=== PATIENT | female | born 1970 | race African-American/Black ===

== ENCOUNTER 2021-10-05 07:41 | Inpatient (IN) | payer MEDICARE, MEDICAID ==
[~2021-10-05] VITALS: Ht 157.5 cm; Wt 84.1 kg
[~2021-10-05 07:41] MED LIST: ALBU18HF2 IH; AMLO5TAB88 PO; BUME2TAB7 PO; CARV12.545 PO; CHOL-36 PO; CLOP75TA33 PO; FLUT1BLS IH; GLIP5TAB12 PO; HYDR30OI12 TP; ISOS120T9 PO; NEPVIT PO; P20 PO; albuterol
[2021-10-05] MEDS ORDERED: METHYLPREDNISOLONE SOD SUCC 125 MG/2 ML VIAL IV STA (07:52)
[2021-10-05] MEDS ORDERED: ALBUTEROL (0.083%) 2.5MG/3ML NEB HHN STA (07:52)
[2021-10-05] MEDS ORDERED: IPRATROPIUM BROMIDE (0.02%) 0.5MG/2.5ML NEB HHN STA (07:52)
[2021-10-05] MEDS ORDERED: FUROSEMIDE 100MG/10ML VIAL IVP ONE (08:00)
[2021-10-05] MEDS ORDERED: NITROGLYCERIN OINT 1GM/INCH UDPKT TD ONE (08:15)
[2021-10-05] MEDS ORDERED: NITROGLYCERIN 50MG PREMIX 250 ML IV ONE (08:15)
[2021-10-05 08:25] LABS: BG BASE EXCESS -6.5 mmol/L (-2.0-2.0); BG CARBOXYHEMOGLOBIN 0.7 % (0.5-1.5); BG DEOXYHEMOGLOBIN 0.1 % (0.0-5.0); BG FRACTION INSPIRED OXYGEN 100; BG HCO3 ACT 21.9 mmol/L (22.0-26.0); BG METHEMOGLOBIN 0.4 % (0.0-1.5); BG OXYGEN SATURATION 99.9 % (92.0-98.5); BG OXYHEMOGLOBIN 98.8 % (94.0-97.0); BG PH 7.203 (7.350-7.450); BG PO2 311.5 mmHg (75.0-100.0); BG SAMPLE SITE RIGHT RADIAL; BG TOTAL HEMOGLOBIN 12.5 g/dL (12.0-18.0); BG VENT MODE MASK - BIPAP
[2021-10-05] MEDS ORDERED: NITROGLYCERIN 50MG PREMIX 250 ML IV PRN (08:45)
[2021-10-05 08:56] LABS: BASOPHILS % 0.5 % (0.0-2.0); EOSINOPHILS % 3.5 % (0.0-5.0); HEMATOCRIT. 37.7 % (36.0-48.0); MEAN CORPUSCULAR HEMOGLOBIN 25.9 pg (28.0-32.0); MEAN CORPUSCULAR VOLUME 81.5 fL (81.0-99.0); MEAN PLATELET VOLUME 8.4 fl (7.4-10.4); MONOCYTES % 6.3 % (2.0-8.0); NEUTROPHILS % 50.7 % (40.0-76.0); PLATELET 319 x1000/uL (130-400); RED BLOOD CELL COUNT 4.63 mill/uL (4.2-5.4); RED CELL DISTRIBUTION WIDTH 17.9 % (11.6-14.6)
[2021-10-05] MEDS ORDERED: AZITHROMYCIN 500 MG in DEXT 5% WATER 250 ML IV SCH (09:00)
[2021-10-05] MEDS ORDERED: CEFTRIAXONE 1 G PREMIX 50 ML IV NR (09:00)
[2021-10-05 09:05] LABS: CHLORIDE 108 mEq/L (98-107)
[2021-10-05] MEDS ORDERED: ASPIRIN 325MG TABLET PO NR (09:30)
[2021-10-05 13:54] LABS: BG CARBOXYHEMOGLOBIN 0.2 % (0.5-1.5); BG DEOXYHEMOGLOBIN 2.4 % (0.0-5.0); BG FRACTION INSPIRED OXYGEN 40; BG HCO3 ACT 18.8 mmol/L (22.0-26.0); BG METHEMOGLOBIN 0.3 % (0.0-1.5); BG OXYGEN SATURATION 97.6 % (92.0-98.5); BG OXYHEMOGLOBIN 97.1 % (94.0-97.0); BG PCO2 38.8 mmHg (35.0-45.0); BG PH 7.303 (7.350-7.450); BG PO2 99.7 mmHg (75.0-100.0); BG SAMPLE SITE RIGHT RADIAL; BG TOTAL HEMOGLOBIN 12.4 g/dL (12.0-18.0); BG VENT MODE MASK - BIPAP
[2021-10-05] MEDS ORDERED: CLONIDINE 0.1MG TABLET PO PRN (14:15)
[2021-10-05] MEDS ORDERED: ACETAMINOPHEN 325MG TABLET PO PRN ×2 (14:15)
[2021-10-05] MEDS: FUROSEMIDE 40MG/4ML VIAL IV SCH ×2 (14:15→17:00)
[2021-10-05] MEDS ORDERED: HYDROCODONE/ACETAMINOPHEN 5/325MG TABLET PO PRN (14:15)
[2021-10-05] MEDS ORDERED: GUAIFENESIN 200MG/10ML SUGAR FREE UDC PO PRN (14:15)
[2021-10-05] MEDS ORDERED: MAGNESIUM/ALUMINUM HYDROXIDE/SIMETHICONE 30ML UDC PO PRN (14:15)
[2021-10-05] MEDS ORDERED: ONDANSETRON HCL 4MG/2ML INJ IV PRN (14:15)
[2021-10-05] MEDS ORDERED: NALOXONE HCL 0.4MG/ML VIAL IV PRN (14:45)
[2021-10-05] MEDS: ENOXAPARIN 40MG/0.4ML SYR SUBCUT SCH (15:00)
[2021-10-05] MEDS ORDERED: HYDROXYZINE 25MG TABLET PO PRN (18:30)
[2021-10-05 20:00] VITALS: BP 125/90
[2021-10-05 22:44] VITALS: BP 125/90
[2021-10-06] VITALS: BP 119/73
[2021-10-06 04:00] VITALS: BP 120/72
[2021-10-06 06:37] LABS: HEMATOCRIT. 31.8 % (36.0-48.0); HEMOGLOBIN. 10.4 g/dL (12.0-16.0); MEAN CORPUSCULAR HEMOGLOBIN 25.9 pg (28.0-32.0); MEAN CORPUSCULAR VOLUME 78.9 fL (81.0-99.0); MEAN PLATELET VOLUME 8.3 fl (7.4-10.4); PLATELET 266 x1000/uL (130-400); RED BLOOD CELL COUNT 4.02 mill/uL (4.2-5.4); RED CELL DISTRIBUTION WIDTH 17.2 % (11.6-14.6)
[2021-10-06 07:03] LABS: CHLORIDE 105 mEq/L (98-107)
[2021-10-06 07:13] LABS: PHOSPHORUS 3.5 mg/dL (2.5-4.9)
[2021-10-06 08:00] VITALS: BP 121/58
[2021-10-06] MEDS: CARVEDILOL 3.125 MG TABLET PO SCH ×2 (08:31→21:10)
[2021-10-06] MEDS: ENOXAPARIN 40MG/0.4ML SYR SUBCUT SCH (08:31)
[2021-10-06] MEDS: FUROSEMIDE 40MG/4ML VIAL IV SCH ×2 (08:31→18:02)
[2021-10-06] MEDS ORDERED: FUROSEMIDE 40MG/4ML VIAL IVP SCH (11:15)
[2021-10-06 12:00] VITALS: BP 109/65
[2021-10-06] MEDS ORDERED: DEXTROSE 50% WATER 50ML SYRINGE IV PRN (12:15)
[2021-10-06] MEDS: INSULIN LISPRO 100 UNITS/ML SUBCUT SCH ×2 (12:15→18:02)
[2021-10-06] MEDS ORDERED: INSULIN GLARGINE 100 UNITS/ML SUBCUT NR (14:00)
[2021-10-06 16:00] VITALS: BP 114/80
[2021-10-06 16:45] LABS: PLATELET ESTIMATE NORMAL
[2021-10-06] MEDS: BLOOD SUGAR DIAGNOSTIC STRIP TEST SCH ×2 (16:45→21:09)
[2021-10-06 20:00] VITALS: BP 118/79
[2021-10-07] VITALS: BP 114/82
[2021-10-07] MEDS: BUDESONIDE 0.5MG/2ML NEB HHN SCH ×3 (01:10→21:27)
[2021-10-07 04:00] VITALS: BP 120/66
[2021-10-07] MEDS: INSULIN LISPRO 100 UNITS/ML SUBCUT SCH ×3 (06:33→17:02)
[2021-10-07] MEDS: BLOOD SUGAR DIAGNOSTIC STRIP TEST SCH ×4 (06:45→20:57)
[2021-10-07 08:25] VITALS: BP 104/73
[2021-10-07] MEDS: CARVEDILOL 3.125 MG TABLET PO SCH ×2 (08:48→20:57)
[2021-10-07] MEDS: FUROSEMIDE 40MG/4ML VIAL IV SCH ×2 (08:51→17:01)
[2021-10-07] MEDS ORDERED: IPRATROPIUM/ALBUTEROL 0.5-3(2.5)MG/3ML NEB HHN PRN ×2 (10:15→12:30)
[2021-10-07] MEDS: INSULIN GLARGINE 100 UNITS/ML SUBCUT SCH (10:24)
[2021-10-07 12:04] VITALS: BP 109/79
[2021-10-07] MEDS: ENOXAPARIN 40MG/0.4ML SYR SUBCUT SCH (15:48)
[2021-10-07 16:30] VITALS: BP 123/82
[2021-10-07 17:36] LABS: BASOPHILS % 0.4 % (0.0-2.0); EOSINOPHILS % 1.5 % (0.0-5.0); HEMATOCRIT. 35.6 % (36.0-48.0); HEMOGLOBIN. 11.3 g/dL (12.0-16.0); LYMPHOCYTES % 11.4 % (20.0-50.0); MEAN CORPUSCULAR HEMOGLOBIN 25.1 pg (28.0-32.0); MEAN PLATELET VOLUME 7.9 fl (7.4-10.4); NEUTROPHILS % 79.7 % (40.0-76.0); PLATELET 318 x1000/uL (130-400); RED BLOOD CELL COUNT 4.51 mill/uL (4.2-5.4); RED CELL DISTRIBUTION WIDTH 17.5 % (11.6-14.6)
[2021-10-07 17:54] LABS: PHOSPHORUS 2.5 mg/dL (2.5-4.9)
[2021-10-07 20:00] VITALS: BP 115/72
[2021-10-07] MEDS: IPRATROPIUM/ALBUTEROL 0.5-3(2.5)MG/3ML NEB HHN SCH (21:27)
[2021-10-08 00:44] VITALS: BP 119/70
[2021-10-08] MEDS: IPRATROPIUM/ALBUTEROL 0.5-3(2.5)MG/3ML NEB HHN SCH ×3 (01:36→14:59)
[2021-10-08 04:00] VITALS: BP 115/72
[2021-10-08] MEDS: INSULIN LISPRO 100 UNITS/ML SUBCUT SCH ×2 (06:34→11:24)
[2021-10-08] MEDS: BLOOD SUGAR DIAGNOSTIC STRIP TEST SCH ×2 (06:34→11:24)
[2021-10-08 07:59] VITALS: BP 106/54
[2021-10-08] MEDS: CARVEDILOL 3.125 MG TABLET PO SCH (09:00)
[2021-10-08] MEDS ORDERED: CLOPIDOGREL 75MG TABLET PO SCH (09:45)
[2021-10-08 09:48] LABS: BASOPHILS % 0.7 % (0.0-2.0); EOSINOPHILS % 4.9 % (0.0-5.0); HEMATOCRIT. 33.7 % (36.0-48.0); HEMOGLOBIN. 10.8 g/dL (12.0-16.0); LYMPHOCYTES % 18.5 % (20.0-50.0); MEAN CORPUSCULAR HEMOGLOBIN 25.1 pg (28.0-32.0); MEAN CORPUSCULAR VOLUME 78.4 fL (81.0-99.0); MONOCYTES % 10.4 % (2.0-8.0); NEUTROPHILS % 65.5 % (40.0-76.0); PLATELET 273 x1000/uL (130-400); RED CELL DISTRIBUTION WIDTH 17.7 % (11.6-14.6)
[2021-10-08] MEDS: BUDESONIDE 0.5MG/2ML NEB HHN SCH (09:55)
[2021-10-08] MEDS: FUROSEMIDE 40MG/4ML VIAL IV SCH (09:57)
[2021-10-08] MEDS: INSULIN GLARGINE 100 UNITS/ML SUBCUT SCH (09:58)
[2021-10-08 11:33] VITALS: BP 123/82
[2021-10-08 12:20] VITALS: BP 109/61
[2021-10-08] MEDS ORDERED: LEVOFLOXACIN 250MG TABLET PO SCH (12:30)
[2021-10-08 15:47] VITALS: BP 111/75
[2021-10-08] MEDS ORDERED: LEVO750T46 PO (16:18)
[2021-10-08] MEDS ORDERED: ALBU18HF2 IH (16:18)
[2021-12-02] MEDS ORDERED: IPRA3AMP9 NEB (13:49)
[2021-12-08] MEDS ORDERED: BUME2TAB34 MT (10:31)
[2021-12-08] MEDS ORDERED: LEVO750T46 MT (10:31)
== END 2021-10-08 17:25 | disposition home health service (06) | DRG 193 ==
LOC: EDBD → ER 07:52 → EDBEDREQSVC 09:43 → EDBEDREQTM 09:43 → ENRESERV 11:18 → CANRESERV 11:18 → EDBEDREQTM 12:42 → EDBEDREQSVC 12:42 → EDBEDREQ 12:42 → 5WST 13:53 → EDBEDREQTM 13:56 → EDBEDREQ 13:56 → EDBEDREQSVC 13:56
PROVIDERS: ADMIT Internal Medicine; ATTEND Internal Medicine
PROC: 5A09357 Assistance with Respiratory Ventilation, Less than 24 Consecutive Hours, Continuous Positive Airway Pressure (ICD-10-PCS; principal; 2021-10-05)
DX: J18.9 Pneumonia, unspecified organism (principal); J96.02 Acute respiratory failure with hypercapnia; I50.23 Acute on chronic systolic (congestive) heart failure; I13.0 Hypertensive heart and chronic kidney disease with heart failure and stage 1 through stage 4 chronic kidney disease, or unspecified chronic kidney disease; J44.1 Chronic obstructive pulmonary disease with (acute) exacerbation; E44.1 Mild protein-calorie malnutrition; I42.9 Cardiomyopathy, unspecified; D64.9 Anemia, unspecified; E66.9 Obesity, unspecified; E78.5 Hyperlipidemia, unspecified; E87.5 Hyperkalemia; Z20.822 Contact with and (suspected) exposure to COVID-19; E11.22 Type 2 diabetes mellitus with diabetic chronic kidney disease; N18.9 Chronic kidney disease, unspecified; I25.10 Atherosclerotic heart disease of native coronary artery without angina pectoris; I25.2 Old myocardial infarction; Z85.118 Personal history of other malignant neoplasm of bronchus and lung; Z85.3 Personal history of malignant neoplasm of breast; Z85.42 Personal history of malignant neoplasm of other parts of uterus; Z86.16 Personal history of COVID-19; Z87.01 Personal history of pneumonia (recurrent); Z92.21 Personal history of antineoplastic chemotherapy; Z92.3 Personal history of irradiation; Z95.5 Presence of coronary angioplasty implant and graft; Z95.810 Presence of automatic (implantable) cardiac defibrillator; Z79.02 Long term (current) use of antithrombotics/antiplatelets; Z79.51 Long term (current) use of inhaled steroids; Z99.81 Dependence on supplemental oxygen; Z68.33 Body mass index [BMI] 33.0-33.9, adult
CPT/HCPCS: 36415; 36600; 71045; 80048; 80053; 80076; 82375; 82805; 82962; 83735; 83880; 83930; 84100; 84145; 84484; 85025; 85379; 87426; 93005; 93306; 93970; 94640; 94660; 99291; J0456; J0696; J1650; J1815; J1940; J2930; J3490; J7060; J7626

== ENCOUNTER 2021-11-05 00:49 | Inpatient (IN) | payer MEDICARE, MEDICAID ==
[2021-11-05] VITALS (8 sets, daily range): BP systolic 103–139; BP diastolic 63–96
[~2021-11-05] VITALS: Ht 157.5 cm; Wt 103.9 kg
[~2021-11-05 00:49] MED LIST changes: +LEVO750T46 PO
[2021-11-05] MEDS ORDERED: METHYLPREDNISOLONE SOD SUCC 125 MG/2 ML VIAL IV STA (00:54)
[2021-11-05] MEDS ORDERED: ALBUTEROL (0.083%) 2.5MG/3ML NEB HHN STA (00:54)
[2021-11-05] MEDS ORDERED: IPRATROPIUM BROMIDE (0.02%) 0.5MG/2.5ML NEB HHN STA (00:54)
[2021-11-05] MEDS ORDERED: MAGNESIUM 2 G PREMIX 50 ML IV ONE (01:00)
[2021-11-05 01:22] LABS: BASOPHILS % 0.4 % (0.0-2.0); EOSINOPHILS % 3.9 % (0.0-5.0); HEMATOCRIT. 36.9 % (36.0-48.0); HEMOGLOBIN. 11.8 g/dL (12.0-16.0); LYMPHOCYTES % 33.4 % (20.0-50.0); MEAN CORPUSCULAR HEMOGLOBIN 25.9 pg (28.0-32.0); MEAN CORPUSCULAR VOLUME 80.9 fL (81.0-99.0); MONOCYTES % 7.8 % (2.0-8.0); NEUTROPHILS % 54.5 % (40.0-76.0); PLATELET 295 x1000/uL (130-400); RED BLOOD CELL COUNT 4.57 mill/uL (4.2-5.4)
[2021-11-05 01:30] LABS: CHLORIDE 109 mEq/L (98-107)
[2021-11-05] MEDS ORDERED: FUROSEMIDE 40MG/4ML VIAL IVP ONE (02:45)
[2021-11-05 03:43] LABS: BG BASE EXCESS -3.9 mmol/L (-2.0-2.0); BG CARBOXYHEMOGLOBIN 0.3 % (0.5-1.5); BG DEOXYHEMOGLOBIN 2.1 % (0.0-5.0); BG FRACTION INSPIRED OXYGEN 50; BG HCO3 ACT 22.2 mmol/L (22.0-26.0); BG METHEMOGLOBIN 0.2 % (0.0-1.5); BG OXYGEN SATURATION 97.9 % (92.0-98.5); BG OXYHEMOGLOBIN 97.4 % (94.0-97.0); BG PCO2 44.5 mmHg (35.0-45.0); BG PH 7.316 (7.350-7.450); BG PO2 106.2 mmHg (75.0-100.0); BG SAMPLE SITE RIGHT RADIAL; BG TOTAL HEMOGLOBIN 11.1 g/dL (12.0-18.0); BG TOTAL RESPIRATORY RATE 18 b/min; BG VENT MODE MASK - BIPAP
[2021-11-05] MEDS ORDERED: CEFTRIAXONE 1 G PREMIX 50 ML IV NR (03:45)
[2021-11-05] MEDS ORDERED: AZITHROMYCIN 500MG/250ML 250 ML IV NR (03:45)
[2021-11-05] MEDS ORDERED: IBUPROFEN 800MG TABLET PO ONE (04:45)
[2021-11-05] MEDS ORDERED: CLONIDINE 0.1MG TABLET PO PRN (07:45)
[2021-11-05] MEDS ORDERED: ACETAMINOPHEN 325MG TABLET PO PRN (07:45)
[2021-11-05] MEDS ORDERED: ACETAMINOPHEN 650MG SUPP PR PRN (07:45)
[2021-11-05] MEDS ORDERED: DIPHENHYDRAMINE 50MG/ML VIAL IV PRN (07:45)
[2021-11-05] MEDS ORDERED: MAGNESIUM/ALUMINUM HYDROXIDE/SIMETHICONE 30ML UDC PO PRN (07:45)
[2021-11-05] MEDS ORDERED: CEFTRIAXONE 1 G PREMIX 50 ML IV SCH (07:45)
[2021-11-05] MEDS ORDERED: CEFTRIAXONE 1,000 MG in DEXTROSE 5% WATER 50 ML IV SCH (09:00)
[2021-11-05] MEDS: PANTOPRAZOLE SODIUM 40 MG/VIAL IV SCH (10:58)
[2021-11-05] MEDS ORDERED: IPRATROPIUM/ALBUTEROL 0.5-3(2.5)MG/3ML NEB HHN PRN (11:00)
[2021-11-05] MEDS: FUROSEMIDE 40MG/4ML VIAL IVP SCH (11:21)
[2021-11-05] MEDS: CARVEDILOL 3.125 MG TABLET PO SCH ×3 (11:21→21:46)
[2021-11-05 12:53] LABS: CLARITY URINE CLEAR (CLEAR); COLOR URINE YELLOW (YELLOW); KETONES URINE NEGATIVE (NEGATIVE); LEUKOCYTE ESTERASE URINE TRACE (NEGATIVE); NITRITE URINE NEGATIVE (NEGATIVE); OCCULT BLOOD URINE TRACE (NEGATIVE); PROTEIN URINE 2+ (NEGATIVE); SPECIFIC GRAVITY URINE 1.011 (1.005-1.030); UROBILINOGEN URINE 0.2 E.U./dL (0.2-1.0)
[2021-11-05 13:16] LABS: *AMPHETAMINES SCREEN URINE NEGATIVE (NEGATIVE); *BARBITURATES SCREEN URINE NEGATIVE (NEGATIVE); *BENZODIAZEPINES SCREEN URINE NEGATIVE (NEGATIVE); *COCAINE SCREEN URINE NEGATIVE (NEGATIVE); METHADONE URINE SCREEN NEGATIVE (NEGATIVE); OPIATES URINE SCREEN NEGATIVE (NEGATIVE)
[2021-11-05 13:17] LABS: CANNABINOID URINE SCREEN NEGATIVE (NEGATIVE); PHENCYCLIDINE URINE SCREEN NEGATIVE (NEGATIVE)
[2021-11-05] MEDS: PREDNISONE 20MG TABLET PO SCH (16:08)
[2021-11-05] MEDS: IPRATROPIUM/ALBUTEROL 0.5-3(2.5)MG/3ML NEB HHN SCH (20:50)
[2021-11-05] MEDS: BUDESONIDE 0.5MG/2ML NEB HHN SCH (20:51)
[2021-11-05 20:58] LABS: BASOPHILS % 0.1 % (0.0-2.0); HEMATOCRIT. 33.7 % (36.0-48.0); HEMOGLOBIN. 10.5 g/dL (12.0-16.0); LYMPHOCYTES % 13.1 % (20.0-50.0); MEAN CORPUSCULAR HEMOGLOBIN 25.6 pg (28.0-32.0); MEAN CORPUSCULAR VOLUME 81.9 fL (81.0-99.0); MEAN PLATELET VOLUME 8.1 fl (7.4-10.4); MONOCYTES % 3.2 % (2.0-8.0); NEUTROPHILS % 83.6 % (40.0-76.0); PLATELET 249 x1000/uL (130-400); RED BLOOD CELL COUNT 4.11 mill/uL (4.2-5.4); RED CELL DISTRIBUTION WIDTH 17.3 % (11.6-14.6)
[2021-11-05 21:06] LABS: CHLORIDE 104 mEq/L (98-107)
[2021-11-05 21:12] LABS: LDL CHOLESTEROL 217 mg/dL (5-100)
[2021-11-05 21:13] LABS: HDL CHOLESTEROL 38 mg/dL (40-59)
[2021-11-05 21:15] LABS: CREATINE KINASE 131 IU/L (26-192)
[2021-11-05 21:16] LABS: TOTAL IRON BINDING CAPACITY 280 ug/dL (250-450)
[2021-11-06] VITALS (12 sets, daily range): BP systolic 113–148; BP diastolic 32–111
[2021-11-06] MEDS: IPRATROPIUM/ALBUTEROL 0.5-3(2.5)MG/3ML NEB HHN SCH ×6 (00:49→20:09)
[2021-11-06 05:53] LABS: BASOPHILS % 0.2 % (0.0-2.0); HEMATOCRIT. 35.1 % (36.0-48.0); HEMOGLOBIN. 11.3 g/dL (12.0-16.0); LYMPHOCYTES % 11.8 % (20.0-50.0); MEAN CORPUSCULAR HEMOGLOBIN 25.5 pg (28.0-32.0); MEAN CORPUSCULAR VOLUME 79.2 fL (81.0-99.0); MEAN PLATELET VOLUME 8.3 fl (7.4-10.4); MONOCYTES % 6.8 % (2.0-8.0); NEUTROPHILS % 81.2 % (40.0-76.0); PLATELET 248 x1000/uL (130-400); RED BLOOD CELL COUNT 4.43 mill/uL (4.2-5.4); RED CELL DISTRIBUTION WIDTH 17.1 % (11.6-14.6)
[2021-11-06] MEDS: BUDESONIDE 0.5MG/2ML NEB HHN SCH ×2 (08:40→20:09)
[2021-11-06] MEDS: PREDNISONE 20MG TABLET PO SCH (09:17)
[2021-11-06] MEDS: PANTOPRAZOLE SODIUM 40 MG/VIAL IV SCH (09:17)
[2021-11-06] MEDS: CARVEDILOL 3.125 MG TABLET PO SCH ×2 (09:17→22:22)
[2021-11-06] MEDS: FUROSEMIDE 40MG/4ML VIAL IVP SCH ×2 (09:17→18:32)
[2021-11-06] MEDS: ENOXAPARIN 40MG/0.4ML SYR SUBCUT SCH (11:36)
[2021-11-06 18:02] LABS: INR 1.1; PARTIAL THROMBOPLASTIN TIME 26.4 sec (23.4-31.0); PROTHROMBIN TIME 11.4 sec (9.6-11.0)
[2021-11-06] MEDS ORDERED: DEXTROSE 50% WATER 50ML SYRINGE IV PRN (19:00)
[2021-11-06] MEDS: BLOOD SUGAR DIAGNOSTIC STRIP TEST SCH (21:00)
[2021-11-06] MEDS ORDERED: ATORVASTATIN CALCIUM 40MG TABLET PO SCH (21:00)
[2021-11-06] MEDS: INSULIN LISPRO 100 UNITS/ML SUBCUT SCH (22:20)
[2021-11-07] VITALS (10 sets, daily range): BP systolic 94–158; BP diastolic 46–103
[2021-11-07] MEDS: IPRATROPIUM/ALBUTEROL 0.5-3(2.5)MG/3ML NEB HHN SCH ×4 (00:33→14:15)
[2021-11-07 06:16] LABS: BASOPHILS % 0.1 % (0.0-2.0); HEMATOCRIT. 33.2 % (36.0-48.0); HEMOGLOBIN. 11.1 g/dL (12.0-16.0); LYMPHOCYTES % 12.2 % (20.0-50.0); MEAN CORPUSCULAR HEMOGLOBIN 26.3 pg (28.0-32.0); MEAN CORPUSCULAR VOLUME 78.5 fL (81.0-99.0); MEAN PLATELET VOLUME 8.5 fl (7.4-10.4); MONOCYTES % 9.1 % (2.0-8.0); NEUTROPHILS % 78.6 % (40.0-76.0); PLATELET 281 x1000/uL (130-400); RED BLOOD CELL COUNT 4.23 mill/uL (4.2-5.4)
[2021-11-07 06:29] LABS: PHOSPHORUS 3.4 mg/dL (2.5-4.9)
[2021-11-07] MEDS: FUROSEMIDE 40MG/4ML VIAL IVP SCH (06:32)
[2021-11-07] MEDS: INSULIN LISPRO 100 UNITS/ML SUBCUT SCH ×2 (08:00→12:34)
[2021-11-07] MEDS: BLOOD SUGAR DIAGNOSTIC STRIP TEST SCH ×2 (08:10→11:38)
[2021-11-07] MEDS ORDERED: SODIUM POLYSTYRENE SULFONATE 15 G/60 ML BOT PO NR (08:15)
[2021-11-07] MEDS ORDERED: SODIUM BICARBONATE 4% (2.4MEQ) 5ML VIAL IV ONE (08:28)
[2021-11-07] MEDS ORDERED: FAMOTIDINE 20MG TABLET PO SCH (09:00)
[2021-11-07] MEDS: PREDNISONE 20MG TABLET PO SCH (09:54)
[2021-11-07] MEDS: CARVEDILOL 3.125 MG TABLET PO SCH (09:55)
[2021-11-07] MEDS: ENOXAPARIN 40MG/0.4ML SYR SUBCUT SCH (11:00)
[2021-11-07] MEDS ORDERED: FAMO20TA8 PO (16:57)
[2021-11-07] MEDS ORDERED: LIP40 PO (16:57)
[2021-11-07] MEDS ORDERED: COR3 PO (16:57)
== END 2021-11-07 18:10 | disposition home health service (06) | DRG 189 ==
LOC: ER 00:49 → MICUSO 04:05 → EDBEDREQTM 04:10 → EDBEDREQ 04:10 → 5EST 10:53
PROVIDERS: ADMIT Internal Medicine; ATTEND Internal Medicine
PROC: 5A09457 Assistance with Respiratory Ventilation, 24-96 Consecutive Hours, Continuous Positive Airway Pressure (ICD-10-PCS; principal; 2021-11-05)
PROC: 5A09357 Assistance with Respiratory Ventilation, Less than 24 Consecutive Hours, Continuous Positive Airway Pressure (ICD-10-PCS; 2021-11-07)
PROC: 0W993ZZ Drainage of Right Pleural Cavity, Percutaneous Approach (ICD-10-PCS; 2021-11-07)
DX: J96.21 Acute and chronic respiratory failure with hypoxia (principal); I21.4 Non-ST elevation (NSTEMI) myocardial infarction; I50.23 Acute on chronic systolic (congestive) heart failure; J18.9 Pneumonia, unspecified organism; I13.0 Hypertensive heart and chronic kidney disease with heart failure and stage 1 through stage 4 chronic kidney disease, or unspecified chronic kidney disease; I42.0 Dilated cardiomyopathy; N17.9 Acute kidney failure, unspecified; E44.1 Mild protein-calorie malnutrition; Z68.41 Body mass index [BMI] 40.0-44.9, adult; J91.8 Pleural effusion in other conditions classified elsewhere; J44.0 Chronic obstructive pulmonary disease with (acute) lower respiratory infection; J96.22 Acute and chronic respiratory failure with hypercapnia; E66.01 Morbid (severe) obesity due to excess calories; I25.10 Atherosclerotic heart disease of native coronary artery without angina pectoris; D64.9 Anemia, unspecified; E11.22 Type 2 diabetes mellitus with diabetic chronic kidney disease; E87.5 Hyperkalemia; N18.30 Chronic kidney disease, stage 3 unspecified; Z20.822 Contact with and (suspected) exposure to COVID-19; E78.5 Hyperlipidemia, unspecified; Z79.02 Long term (current) use of antithrombotics/antiplatelets; Z85.118 Personal history of other malignant neoplasm of bronchus and lung; Z85.3 Personal history of malignant neoplasm of breast; Z85.42 Personal history of malignant neoplasm of other parts of uterus; I25.2 Old myocardial infarction; Z86.16 Personal history of COVID-19; Z87.01 Personal history of pneumonia (recurrent); Z92.21 Personal history of antineoplastic chemotherapy; Z92.3 Personal history of irradiation; Z95.5 Presence of coronary angioplasty implant and graft; Z95.810 Presence of automatic (implantable) cardiac defibrillator; Z99.81 Dependence on supplemental oxygen; Z79.51 Long term (current) use of inhaled steroids; Z82.49 Family history of ischemic heart disease and other diseases of the circulatory system; Z79.84 Long term (current) use of oral hypoglycemic drugs; Z79.899 Other long term (current) drug therapy
CPT/HCPCS: 32555; 36415; 36600; 71045; 71250; 78580; 80048; 80053; 80061; 80305; 81003; 82140; 82375; 82550; 82805; 82962; 83036; 83540; 83550; 83605; 83615; 83735; 83880; 83986; 84100; 84443; 84484; 85025; 85379; 87426; 88108; 88312; 93005; 93970; 94640; 94660; 99291; C1893; C9113; J0456; J0696; J1650; J1815; J1940; J2930; J3475; J3490; J7060; J7512; J7626; A4315

== ENCOUNTER 2021-12-03 23:42 | Inpatient (IN) | payer MEDICARE, MEDICAID ==
[~2021-12-03] VITALS: Ht 167.6 cm; Wt 100.2 kg
[~2021-12-03 23:42] MED LIST changes: -CARV12.545 PO; +COR3 PO; +FAMO20TA8 PO; +IPRA3AMP9 NEB; -LEVO750T46 PO; +LIP40 PO; -albuterol
[2021-12-04] MEDS ORDERED: FUROSEMIDE 40MG/4ML VIAL IV ONE
[2021-12-04 00:34] LABS: BASOPHILS % 0.6 % (0.0-2.0); EOSINOPHILS % 4.3 % (0.0-5.0); HEMATOCRIT. 41.2 % (36.0-48.0); HEMOGLOBIN. 13.1 g/dL (12.0-16.0); LYMPHOCYTES % 31.9 % (20.0-50.0); MEAN CORPUSCULAR HEMOGLOBIN 25.5 pg (28.0-32.0); MEAN CORPUSCULAR VOLUME 80.3 fL (81.0-99.0); MEAN PLATELET VOLUME 8.1 fl (7.4-10.4); MONOCYTES % 7.5 % (2.0-8.0); NEUTROPHILS % 55.7 % (40.0-76.0); PLATELET 334 x1000/uL (130-400); RED BLOOD CELL COUNT 5.13 mill/uL (4.2-5.4); RED CELL DISTRIBUTION WIDTH 16.2 % (11.6-14.6)
[2021-12-04] MEDS ORDERED: CEFTRIAXONE 1 G PREMIX 50 ML IV SCH (00:45)
[2021-12-04] MEDS ORDERED: AZITHROMYCIN 500 MG in DEXT 5% WATER 250 ML IV SCH (01:00)
[2021-12-04 01:06] LABS: BG BASE EXCESS -2.3 mmol/L (-2.0-2.0); BG CARBOXYHEMOGLOBIN 0.1 % (0.5-1.5); BG DEOXYHEMOGLOBIN 2.2 % (0.0-5.0); BG FRACTION INSPIRED OXYGEN 60; BG HCO3 ACT 25.1 mmol/L (22.0-26.0); BG METHEMOGLOBIN 0.3 % (0.0-1.5); BG OXYGEN SATURATION 97.8 % (92.0-98.5); BG OXYHEMOGLOBIN 97.4 % (94.0-97.0); BG PCO2 54.3 mmHg (35.0-45.0); BG PH 7.282 (7.350-7.450); BG PO2 110.1 mmHg (75.0-100.0); BG SAMPLE SITE LEFT RADIAL; BG TOTAL HEMOGLOBIN 12.3 g/dL (12.0-18.0); BG TOTAL RESPIRATORY RATE 26 b/min; BG VENT MODE MASK - BIPAP
[2021-12-04 01:29] LABS: CHLORIDE 103 mEq/L (98-107)
[2021-12-04 08:54] LABS: INR 1.1; PROTHROMBIN TIME 11.5 sec (9.6-11.0)
[2021-12-04] MEDS ORDERED: PIPERACILLIN/TAZ 3.375G PREMIX 50 ML IV SCH (09:45)
[2021-12-04] MEDS ORDERED: ONDANSETRON HCL 4MG/2ML INJ IV PRN (09:45)
[2021-12-04] MEDS ORDERED: CLONIDINE 0.1MG TABLET PO PRN (09:45)
[2021-12-04] MEDS ORDERED: ACETAMINOPHEN 325MG TABLET PO PRN (09:45)
[2021-12-04] MEDS ORDERED: KETOROLAC 15MG/ML VIAL IV PRN (09:45)
[2021-12-04] MEDS ORDERED: MAGNESIUM/ALUMINUM HYDROXIDE/SIMETHICONE 30ML UDC PO PRN (09:45)
[2021-12-04] MEDS ORDERED: NITROGLYCERIN 0.4MG TABLET SL SL PRN (09:45)
[2021-12-04] MEDS ORDERED: DOCUSATE SODIUM 100MG CAPSULE PO PRN (09:45)
[2021-12-04] MEDS ORDERED: DEXTROSE 50% WATER 50ML SYRINGE IV PRN (09:45)
[2021-12-04] MEDS ORDERED: GUAIFENESIN 200MG/10ML SUGAR FREE UDC PO PRN (09:45)
[2021-12-04] MEDS ORDERED: IPRATROPIUM/ALBUTEROL 0.5-3(2.5)MG/3ML NEB NEB PRN (09:45)
[2021-12-04 10:00] VITALS: BP 129/94
[2021-12-04] MEDS ORDERED: FUROSEMIDE 40MG/4ML VIAL IVP SCH (10:00)
[2021-12-04] MEDS: ENOXAPARIN 40MG/0.4ML SYR SUBCUT SCH (10:00)
[2021-12-04 12:00] VITALS: BP 143/95
[2021-12-04] MEDS ORDERED: VANCOMYCIN 2,000 MG in DEXT 5% WATER 500 ML IV NR (12:00)
[2021-12-04 12:43] LABS: T4 FREE 1.25 ng/dL (0.76-1.46)
[2021-12-04] MEDS: ZINC SULFATE 220 MG ( 50 ) CAPSULE PO SCH (12:54)
[2021-12-04] MEDS: FAMOTIDINE 20MG TABLET PO SCH (12:54)
[2021-12-04] MEDS: BLOOD SUGAR DIAGNOSTIC STRIP TEST SCH ×3 (12:55→20:39)
[2021-12-04] MEDS: ACETAMINOPHEN 325MG TABLET PO PRN ×2 (12:55→20:57)
[2021-12-04] MEDS: INSULIN LISPRO 100 UNITS/ML SUBCUT SCH ×3 (13:00→20:49)
[2021-12-04] MEDS: PIPERACILLIN/TAZOBACTAM 3.375G in DEXT 5% WATER 50ML IV SCH ×2 (15:46→20:49)
[2021-12-04 16:00] VITALS: BP 134/74
[2021-12-04 18:00] VITALS: BP 119/91
[2021-12-04] MEDS ORDERED: SPIRONOLACTONE 25MG TABLET PO SCH (18:00)
[2021-12-04] MEDS: FUROSEMIDE 40MG/4ML VIAL IVP SCH (19:30)
[2021-12-04 20:00] VITALS: BP 126/88
[2021-12-04] MEDS: CARVEDILOL 3.125 MG TABLET PO SCH (20:39)
[2021-12-04] MEDS: ASCORBIC ACID 500 MG TABLET PO SCH (20:39)
[2021-12-04] MEDS: IPRATROPIUM/ALBUTEROL 0.5-3(2.5)MG/3ML NEB HHN SCH (20:49)
[2021-12-04] MEDS ORDERED: ZOLPIDEM TARTRATE 5MG TABLET PO PRN (21:00)
[2021-12-04 22:00] VITALS: BP 107/65
[2021-12-05] VITALS (11 sets, daily range): BP systolic 97–137; BP diastolic 50–90
[2021-12-05] MEDS: IPRATROPIUM/ALBUTEROL 0.5-3(2.5)MG/3ML NEB HHN SCH ×6 (00:55→20:00)
[2021-12-05 01:03] LABS: CREATINE KINASE MB FRACTION 2.9 ng/mL (0.5-3.6)
[2021-12-05] MEDS: PIPERACILLIN/TAZOBACTAM 3.375G in DEXT 5% WATER 50ML IV SCH ×3 (05:29→22:02)
[2021-12-05] MEDS: FUROSEMIDE 40MG/4ML VIAL IVP SCH (05:37)
[2021-12-05 06:56] LABS: BASOPHILS % 0.6 % (0.0-2.0); HEMATOCRIT. 34.8 % (36.0-48.0); HEMOGLOBIN. 11.4 g/dL (12.0-16.0); LYMPHOCYTES % 15.6 % (20.0-50.0); MEAN CORPUSCULAR HEMOGLOBIN 25.5 pg (28.0-32.0); MEAN CORPUSCULAR VOLUME 78.1 fL (81.0-99.0); MEAN PLATELET VOLUME 7.9 fl (7.4-10.4); MONOCYTES % 13.1 % (2.0-8.0); NEUTROPHILS % 60.7 % (40.0-76.0); PLATELET 311 x1000/uL (130-400); RED BLOOD CELL COUNT 4.45 mill/uL (4.2-5.4); RED CELL DISTRIBUTION WIDTH 16.2 % (11.6-14.6)
[2021-12-05 07:13] LABS: CHLORIDE 104 mEq/L (98-107)
[2021-12-05 07:19] LABS: PHOSPHORUS 3.4 mg/dL (2.5-4.9)
[2021-12-05] MEDS: BLOOD SUGAR DIAGNOSTIC STRIP TEST SCH ×4 (07:30→20:36)
[2021-12-05 08:19] LABS: BG CARBOXYHEMOGLOBIN 0.3 % (0.5-1.5); BG DEOXYHEMOGLOBIN 2.4 % (0.0-5.0); BG FRACTION INSPIRED OXYGEN 28; BG HCO3 ACT 25.1 mmol/L (22.0-26.0); BG METHEMOGLOBIN 0.3 % (0.0-1.5); BG OXYGEN SATURATION 97.6 % (92.0-98.5); BG PCO2 42.5 mmHg (35.0-45.0); BG PH 7.389 (7.350-7.450); BG PO2 94.7 mmHg (75.0-100.0); BG SAMPLE SITE RIGHT BRACHIAL; BG TOTAL HEMOGLOBIN 13.3 g/dL (12.0-18.0); BG VENT MODE NASAL CANNULA
[2021-12-05] MEDS: CARVEDILOL 3.125 MG TABLET PO SCH ×2 (08:48→20:49)
[2021-12-05] MEDS: ASCORBIC ACID 500 MG TABLET PO SCH ×2 (08:49→20:46)
[2021-12-05] MEDS: FAMOTIDINE 20MG TABLET PO SCH (08:49)
[2021-12-05] MEDS: ZINC SULFATE 220 MG ( 50 ) CAPSULE PO SCH (08:49)
[2021-12-05] MEDS: ENOXAPARIN 40MG/0.4ML SYR SUBCUT SCH (08:53)
[2021-12-05] MEDS: INSULIN LISPRO 100 UNITS/ML SUBCUT SCH ×4 (08:58→20:51)
[2021-12-05] MEDS ORDERED: VANCOMYCIN 750MG PMX (XELLIA) 150 ML IV SCH (12:00)
[2021-12-05] MEDS: BUMETANIDE 1MG/4ML VIAL IV SCH ×2 (14:09→18:00)
[2021-12-06] VITALS (12 sets, daily range): BP systolic 121–163; BP diastolic 62–102
[2021-12-06] MEDS: IPRATROPIUM/ALBUTEROL 0.5-3(2.5)MG/3ML NEB HHN SCH ×3 (00:42→20:35)
[2021-12-06] MEDS: BUMETANIDE 1MG/4ML VIAL IV SCH ×2 (06:03→17:47)
[2021-12-06] MEDS: PIPERACILLIN/TAZOBACTAM 3.375G in DEXT 5% WATER 50ML IV SCH ×3 (06:03→21:13)
[2021-12-06] MEDS: BLOOD SUGAR DIAGNOSTIC STRIP TEST SCH ×4 (08:07→20:54)
[2021-12-06] MEDS: FAMOTIDINE 20MG TABLET PO SCH (09:11)
[2021-12-06] MEDS: INSULIN LISPRO 100 UNITS/ML SUBCUT SCH ×4 (09:11→21:04)
[2021-12-06] MEDS: ENOXAPARIN 40MG/0.4ML SYR SUBCUT SCH (09:11)
[2021-12-06] MEDS: CARVEDILOL 3.125 MG TABLET PO SCH ×2 (09:11→21:01)
[2021-12-06] MEDS: ASCORBIC ACID 500 MG TABLET PO SCH ×2 (09:11→21:00)
[2021-12-06] MEDS: ZINC SULFATE 220 MG ( 50 ) CAPSULE PO SCH (09:11)
[2021-12-06] MEDS: ACETAMINOPHEN 325MG TABLET PO PRN (22:38)
[2021-12-07] VITALS (11 sets, daily range): BP systolic 111–144; BP diastolic 69–88
[2021-12-07] MEDS: IPRATROPIUM/ALBUTEROL 0.5-3(2.5)MG/3ML NEB HHN SCH ×5 (00:20→20:29)
[2021-12-07] MEDS: BUMETANIDE 1MG/4ML VIAL IV SCH (05:48)
[2021-12-07] MEDS: PIPERACILLIN/TAZOBACTAM 3.375G in DEXT 5% WATER 50ML IV SCH ×4 (05:48→21:34)
[2021-12-07] MEDS: BLOOD SUGAR DIAGNOSTIC STRIP TEST SCH ×4 (07:52→21:34)
[2021-12-07] MEDS: INSULIN LISPRO 100 UNITS/ML SUBCUT SCH ×4 (07:54→22:01)
[2021-12-07] MEDS: ZINC SULFATE 220 MG ( 50 ) CAPSULE PO SCH (08:44)
[2021-12-07] MEDS: ASCORBIC ACID 500 MG TABLET PO SCH ×2 (08:44→21:33)
[2021-12-07] MEDS: FAMOTIDINE 20MG TABLET PO SCH (08:44)
[2021-12-07] MEDS: CARVEDILOL 3.125 MG TABLET PO SCH ×2 (08:45→21:34)
[2021-12-07] MEDS: ENOXAPARIN 40MG/0.4ML SYR SUBCUT SCH (11:40)
[2021-12-07] MEDS ORDERED: VANCOMYCIN 1GM PMX (XELLIA) 200 ML IV NR (18:00)
[2021-12-07] MEDS: ACETAMINOPHEN 325MG TABLET PO PRN (21:58)
[2021-12-08] VITALS (7 sets, daily range): BP systolic 103–123; BP diastolic 60–76
[2021-12-08] MEDS: IPRATROPIUM/ALBUTEROL 0.5-3(2.5)MG/3ML NEB HHN SCH ×4 (00:18→12:30)
[2021-12-08] MEDS: PIPERACILLIN/TAZOBACTAM 3.375G in DEXT 5% WATER 50ML IV SCH (05:55)
[2021-12-08] MEDS: BUMETANIDE 1MG/4ML VIAL IV SCH (06:17)
[2021-12-08] MEDS: ZINC SULFATE 220 MG ( 50 ) CAPSULE PO SCH (10:07)
[2021-12-08] MEDS: CARVEDILOL 3.125 MG TABLET PO SCH (10:07)
[2021-12-08] MEDS: FAMOTIDINE 20MG TABLET PO SCH (10:07)
[2021-12-08] MEDS: ASCORBIC ACID 500 MG TABLET PO SCH (10:07)
[2021-12-08] MEDS: ENOXAPARIN 40MG/0.4ML SYR SUBCUT SCH (10:08)
[2021-12-08] MEDS ORDERED: BUME2TAB34 MT (10:31)
[2021-12-08] MEDS ORDERED: LEVO750T46 MT (10:31)
[2021-12-09] MEDS ORDERED: BUMETANIDE 1MG TABLET PO SCH (09:00)
== END 2021-12-08 16:11 | disposition home or self-care (01) | DRG 193 ==
LOC: EDBD → ER 23:42 → MICUSO 12-04 03:35 → 5EST 12-04 09:39
PROVIDERS: ADMIT Internal Medicine; ATTEND Internal Medicine
PROC: 0W993ZZ Drainage of Right Pleural Cavity, Percutaneous Approach (ICD-10-PCS; principal; 2021-12-04)
PROC: 5A09357 Assistance with Respiratory Ventilation, Less than 24 Consecutive Hours, Continuous Positive Airway Pressure (ICD-10-PCS; 2021-12-04)
DX: J18.9 Pneumonia, unspecified organism (principal); I50.43 Acute on chronic combined systolic (congestive) and diastolic (congestive) heart failure; J96.21 Acute and chronic respiratory failure with hypoxia; N17.0 Acute kidney failure with tubular necrosis; J96.22 Acute and chronic respiratory failure with hypercapnia; R65.11 Systemic inflammatory response syndrome (SIRS) of non-infectious origin with acute organ dysfunction; E44.1 Mild protein-calorie malnutrition; I13.0 Hypertensive heart and chronic kidney disease with heart failure and stage 1 through stage 4 chronic kidney disease, or unspecified chronic kidney disease; I31.3 Pericardial effusion (noninflammatory); I42.9 Cardiomyopathy, unspecified; J44.0 Chronic obstructive pulmonary disease with (acute) lower respiratory infection; J91.8 Pleural effusion in other conditions classified elsewhere; N18.9 Chronic kidney disease, unspecified; D64.9 Anemia, unspecified; E11.22 Type 2 diabetes mellitus with diabetic chronic kidney disease; E11.65 Type 2 diabetes mellitus with hyperglycemia; E66.9 Obesity, unspecified; E78.00 Pure hypercholesterolemia, unspecified; Z20.822 Contact with and (suspected) exposure to COVID-19; T50.995A Adverse effect of other drugs, medicaments and biological substances, initial encounter; Z60.2 Problems related to living alone; E78.5 Hyperlipidemia, unspecified; I25.2 Old myocardial infarction; Z85.118 Personal history of other malignant neoplasm of bronchus and lung; Z85.3 Personal history of malignant neoplasm of breast; Z85.42 Personal history of malignant neoplasm of other parts of uterus; Z86.16 Personal history of COVID-19; Z92.21 Personal history of antineoplastic chemotherapy; Z92.3 Personal history of irradiation; Z95.810 Presence of automatic (implantable) cardiac defibrillator; Z99.81 Dependence on supplemental oxygen; Z79.4 Long term (current) use of insulin; Z68.35 Body mass index [BMI] 35.0-35.9, adult; Z79.899 Other long term (current) drug therapy; Y92.89 Other specified places as the place of occurrence of the external cause
CPT/HCPCS: 32555; 36415; 36600; 71045; 80048; 80053; 80061; 80202; 82375; 82550; 82553; 82607; 82746; 82805; 82962; 83036; 83540; 83550; 83605; 83735; 83880; 84100; 84145; 84439; 84443; 84484; 85025; 87426; 93005; 93306; 93970; 94640; 94660; 97162; 97166; 99291; C1893; J0456; J0696; J1650; J1815; J1885; J1940; J2543; J3370; J3490; J7060

== ENCOUNTER 2021-12-16 05:49 | Inpatient (IN) | payer MEDICARE, MEDICAID ==
[~2021-12-16] VITALS: Ht 167.6 cm; Wt 95.8 kg
[~2021-12-16 05:49] MED LIST changes: -AMLO5TAB88 PO; +BUME2TAB34 MT; -HYDR30OI12 TP; -ISOS120T9 PO; +LEVO750T46 MT; -P20 PO
[2021-12-16] MEDS ORDERED: ALBUTEROL (0.083%) 2.5MG/3ML NEB HHN STA (06:09)
[2021-12-16] MEDS ORDERED: FUROSEMIDE 40MG/4ML VIAL IV ONE (06:15)
[2021-12-16] MEDS ORDERED: NITROGLYCERIN 0.4MG TABLET SL SL PRN (06:15)
[2021-12-16] MEDS ORDERED: ASPIRIN 81MG TABLET PO ONE (06:15)
[2021-12-16] MEDS ORDERED: PIPERACILLIN/TAZ 3.375G PREMIX 50 ML IV ONE (06:30)
[2021-12-16 07:43] LABS: BASOPHILS % 0.4 % (0.0-2.0); EOSINOPHILS % 1.9 % (0.0-5.0); HEMATOCRIT. 37.5 % (36.0-48.0); HEMOGLOBIN. 11.8 g/dL (12.0-16.0); LYMPHOCYTES % 13.9 % (20.0-50.0); MEAN CORPUSCULAR HEMOGLOBIN 24.6 pg (28.0-32.0); MEAN CORPUSCULAR VOLUME 78.4 fL (81.0-99.0); MEAN PLATELET VOLUME 7.7 fl (7.4-10.4); MONOCYTES % 12.4 % (2.0-8.0); NEUTROPHILS % 71.4 % (40.0-76.0); PLATELET 419 x1000/uL (130-400); RED BLOOD CELL COUNT 4.78 mill/uL (4.2-5.4); RED CELL DISTRIBUTION WIDTH 16.6 % (11.6-14.6)
[2021-12-16 07:52] LABS: CHLORIDE 104 mEq/L (98-107)
[2021-12-16] MEDS ORDERED: MAGNESIUM/ALUMINUM HYDROXIDE/SIMETHICONE 30ML UDC PO PRN (12:00)
[2021-12-16] MEDS ORDERED: CLONIDINE 0.1MG TABLET PO PRN (12:00)
[2021-12-16] MEDS ORDERED: DOCUSATE SODIUM 100MG CAPSULE PO PRN (12:00)
[2021-12-16] MEDS ORDERED: FAMOTIDINE(NEO) 1MG/ML SUSP PO SCH (12:00)
[2021-12-16] MEDS ORDERED: IPRATROPIUM/ALBUTEROL 0.5-3(2.5)MG/3ML NEB HHN PRN (12:00)
[2021-12-16] MEDS ORDERED: ONDANSETRON HCL 4MG/2ML INJ IV PRN (12:00)
[2021-12-16] MEDS ORDERED: GUAIFENESIN 200MG/10ML SUGAR FREE UDC PO PRN (12:00)
[2021-12-16] MEDS ORDERED: ENOXAPARIN 40MG/0.4ML SYR SUBCUT SCH ×2 (12:00→12:30)
[2021-12-16] MEDS: BUMETANIDE 1MG/4ML VIAL IV SCH (12:00)
[2021-12-16] MEDS ORDERED: HYDROCODONE/ACETAMINOPHEN 5/325MG TABLET PO PRN (12:00)
[2021-12-16] MEDS ORDERED: NALOXONE HCL 0.4MG/ML VIAL IV PRN (12:15)
[2021-12-16] MEDS ORDERED: ENOXAPARIN 30MG/0.3ML SYR SUBCUT SCH ×2 (12:16→12:30)
[2021-12-16 14:09] VITALS: BP 127/82
[2021-12-16 15:00] VITALS: BP 117/72
[2021-12-16] MEDS ORDERED: BUMETANIDE 1MG/4ML VIAL IV SCH (15:00)
[2021-12-16] MEDS: IPRATROPIUM/ALBUTEROL 0.5-3(2.5)MG/3ML NEB HHN SCH ×2 (16:10→20:13)
[2021-12-16 16:37] VITALS: BP 123/75
[2021-12-16 17:00] VITALS: BP 120/82
[2021-12-16 17:13] LABS: INR 1.3; PROTHROMBIN TIME 13.5 sec (9.6-11.0)
[2021-12-16 17:31] LABS: BG BASE EXCESS -3.9 mmol/L (-2.0-2.0); BG CARBOXYHEMOGLOBIN 0.3 % (0.5-1.5); BG FRACTION INSPIRED OXYGEN 40; BG HCO3 ACT 21.3 mmol/L (22.0-26.0); BG METHEMOGLOBIN 0.3 % (0.0-1.5); BG OXYHEMOGLOBIN 97.4 % (94.0-97.0); BG PCO2 39.3 mmHg (35.0-45.0); BG PH 7.352 (7.350-7.450); BG PO2 109.3 mmHg (75.0-100.0); BG SAMPLE SITE RIGHT RADIAL; BG TOTAL HEMOGLOBIN 12.4 g/dL (12.0-18.0); BG VENT MODE MASK - BIPAP
[2021-12-16] MEDS: CARVEDILOL 3.125 MG TABLET PO SCH (17:55)
[2021-12-16] MEDS ORDERED: DEXTROSE 50% WATER 50ML SYRINGE IV PRN (18:00)
[2021-12-16] MEDS: INSULIN LISPRO 100 UNITS/ML SUBCUT SCH ×2 (18:12→20:59)
[2021-12-16 20:00] VITALS: BP 105/59
[2021-12-16] MEDS: ATORVASTATIN CALCIUM 40MG TABLET PO SCH (20:53)
[2021-12-16] MEDS: BLOOD SUGAR DIAGNOSTIC STRIP TEST SCH (20:53)
[2021-12-16] MEDS ORDERED: FLUTICASONE/VILANTEROL 200-25 BLST.W.DEV ORI SCH (21:00)
[2021-12-16 22:00] VITALS: BP 109/76
[2021-12-17] VITALS (26 sets, daily range): BP systolic 41–148; BP diastolic 18–91
[2021-12-17] MEDS ORDERED: ALBUTEROL (0.083%) 2.5MG/3ML NEB HHN SCH
[2021-12-17] MEDS: IPRATROPIUM/ALBUTEROL 0.5-3(2.5)MG/3ML NEB HHN SCH ×4 (00:54→16:41)
[2021-12-17 06:28] LABS: BASOPHILS % 0.4 % (0.0-2.0); EOSINOPHILS % 1.2 % (0.0-5.0); HEMOGLOBIN. 10.9 g/dL (12.0-16.0); LYMPHOCYTES % 11.1 % (20.0-50.0); MEAN CORPUSCULAR VOLUME 78.2 fL (81.0-99.0); MEAN PLATELET VOLUME 7.8 fl (7.4-10.4); MONOCYTES % 12.9 % (2.0-8.0); NEUTROPHILS % 74.4 % (40.0-76.0); PLATELET 394 x1000/uL (130-400); RED BLOOD CELL COUNT 4.35 mill/uL (4.2-5.4); RED CELL DISTRIBUTION WIDTH 16.5 % (11.6-14.6)
[2021-12-17 06:34] LABS: INR 1.2; PARTIAL THROMBOPLASTIN TIME 41.6 sec (23.4-31.0); PROTHROMBIN TIME 13.1 sec (9.6-11.0)
[2021-12-17] MEDS: INSULIN LISPRO 100 UNITS/ML SUBCUT SCH ×4 (06:56→21:00)
[2021-12-17] MEDS: BLOOD SUGAR DIAGNOSTIC STRIP TEST SCH ×4 (06:56→21:00)
[2021-12-17 07:30] LABS: CHLORIDE 102 mEq/L (98-107)
[2021-12-17] MEDS: BUMETANIDE 1MG/4ML VIAL IV SCH ×2 (08:37→20:41)
[2021-12-17] MEDS ORDERED: SODIUM BICARBONATE 4% (2.4MEQ) 5ML VIAL IV ONE (08:47)
[2021-12-17] MEDS: CARVEDILOL 3.125 MG TABLET PO SCH ×2 (08:48→17:00)
[2021-12-17] MEDS ORDERED: FAMOTIDINE 10MG TABLET PO SCH (09:00)
[2021-12-17 09:05] LABS: BG BASE EXCESS -2.4 mmol/L (-2.0-2.0); BG CARBOXYHEMOGLOBIN 0.3 % (0.5-1.5); BG DEOXYHEMOGLOBIN 1.9 % (0.0-5.0); BG FRACTION INSPIRED OXYGEN 40; BG HCO3 ACT 22.2 mmol/L (22.0-26.0); BG METHEMOGLOBIN 0.2 % (0.0-1.5); BG OXYGEN SATURATION 98.1 % (92.0-98.5); BG OXYHEMOGLOBIN 97.6 % (94.0-97.0); BG PCO2 37.7 mmHg (35.0-45.0); BG PH 7.388 (7.350-7.450); BG PO2 110.3 mmHg (75.0-100.0); BG SAMPLE SITE RIGHT RADIAL; BG TOTAL HEMOGLOBIN 11.8 g/dL (12.0-18.0); BG TOTAL RESPIRATORY RATE 26 b/min; BG VENT MODE MASK - BIPAP
[2021-12-17] MEDS ORDERED: BUMETANIDE 1MG/4ML VIAL IV SCH (12:30)
[2021-12-17] MEDS: FAMOTIDINE 20MG TABLET PO SCH (12:59)
[2021-12-17] MEDS ORDERED: BLOOD SUGAR DIAGNOSTIC STRIP TEST NR (13:30)
[2021-12-17] MEDS ORDERED: CEFAZOLIN 2,000 MG in DEXT 5% WATER 100 ML IV PRN (14:00)
[2021-12-17] MEDS ORDERED: TALC 3 GM VIAL IX NR (15:30)
[2021-12-17] MEDS ORDERED: BUPIVACAINE HCL/PF 0.25% (2.5MG/ML) 10ML ONE (15:31)
[2021-12-17] MEDS ORDERED: TETRACAINE/BENZOCAINE/BUTAMBEN 20 GM SPRAY MM ONE (15:31)
[2021-12-17] MEDS ORDERED: POLYMYXIN B SULFATE 500000 UNITS/VIAL ONE (15:31)
[2021-12-17] MEDS ORDERED: SKIN ADHESIVE 0.7 GM EA TOP ONE (15:32)
[2021-12-17] MEDS ORDERED: DOPAMINE 400MG/250ML PREMIX 250 ML IV ONE (16:56)
[2021-12-17] MEDS ORDERED: ROCURONIUM BROMIDE 10MG/ML VIAL 5ML IV ONE ×2 (17:49→18:26)
[2021-12-17] MEDS ORDERED: DEXAMETHASONE 4MG/ML 1ML VIAL ONE (19:05)
[2021-12-17] MEDS ORDERED: GLYCOPYRROLATE 0.2 MG/ML 2ML VIAL ONE ×3 (19:06→19:21)
[2021-12-17] MEDS ORDERED: NEOSTIGMINE METHYLSULFATE 1MG/ML 10 ML VIAL ONE (19:06)
[2021-12-17] MEDS ORDERED: ALBUTEROL 6.7GM HFA INHALER ONE (19:21)
[2021-12-17] MEDS ORDERED: ALBUMIN HUMAN 25GM/100ML (25%) IV NR (20:00)
[2021-12-17 20:33] LABS: BG BASE EXCESS -5.7 mmol/L (-2.0-2.0); BG CARBOXYHEMOGLOBIN 0.3 % (0.5-1.5); BG DEOXYHEMOGLOBIN 0.4 % (0.0-5.0); BG FRACTION INSPIRED OXYGEN 100; BG HCO3 ACT 20.6 mmol/L (22.0-26.0); BG METHEMOGLOBIN 0.4 % (0.0-1.5); BG OXYGEN SATURATION 99.6 % (92.0-98.5); BG OXYHEMOGLOBIN 98.9 % (94.0-97.0); BG PCO2 43.3 mmHg (35.0-45.0); BG PH 7.295 (7.350-7.450); BG PO2 434.3 mmHg (75.0-100.0); BG SAMPLE SITE ALINE; BG TOTAL HEMOGLOBIN 11.6 g/dL (12.0-18.0); BG TOTAL RESPIRATORY RATE 16 b/min; BG VENT MODE VENT - AC
[2021-12-17] MEDS: ATORVASTATIN CALCIUM 40MG TABLET PO SCH (21:00)
[2021-12-17 22:16] LABS: BG BASE EXCESS -7.3 mmol/L (-2.0-2.0); BG CARBOXYHEMOGLOBIN 0.3 % (0.5-1.5); BG FRACTION INSPIRED OXYGEN 60; BG HCO3 ACT 18.2 mmol/L (22.0-26.0); BG OXYHEMOGLOBIN 98.7 % (94.0-97.0); BG PCO2 36.3 mmHg (35.0-45.0); BG PH 7.317 (7.350-7.450); BG PO2 203.5 mmHg (75.0-100.0); BG SAMPLE SITE ALINE; BG TOTAL HEMOGLOBIN 10.4 g/dL (12.0-18.0); BG TOTAL RESPIRATORY RATE 14 b/min; BG VENT MODE VENT - AC
[2021-12-17] MEDS: NOREPINEPHRINE 8 MG in DEXT 5% WATER 250 ML IV PRN (22:29)
[2021-12-17] MEDS ORDERED: FENTANYL 2500MCG/250ML PMX 250 ML IV PRN (22:30)
[2021-12-17 22:34] LABS: HEMATOCRIT 31.4 % (36.0-48.0); HEMOGLOBIN 9.9 g/dL (12.0-16.0); MEAN CORPUSCULAR HEMOGLOBIN 24.5 pg (28.0-32.0); MEAN CORPUSCULAR VOLUME 77.6 fL (81.0-99.0); PLATELET 388 x1000/uL (130-400); RED BLOOD CELL COUNT 4.05 mill/uL (4.2-5.4); RED CELL DISTRIBUTION WIDTH 16.4 % (11.6-14.6)
[2021-12-17] MEDS: PHENYLEPHRINE 100 MG in DEXT 5% WATER 240 ML IV PRN (22:35)
[2021-12-17 22:43] LABS: CHLORIDE 106 mEq/L (98-107)
[2021-12-17 22:49] LABS: INR 1.4; PROTHROMBIN TIME 14.8 sec (9.6-11.0)
[2021-12-17 22:50] LABS: PHOSPHORUS 4.8 mg/dL (2.5-4.9)
[2021-12-17 22:53] LABS: CREATINE KINASE 104 IU/L (26-192)
[2021-12-17] MEDS ORDERED: MIDAZOLAM HCL 100 MG in SODIUM CHLORIDE 0.9% 80 ML IV PRN (23:45)
[2021-12-18] VITALS (104 sets, daily range): BP systolic 71–138; BP diastolic 25–80
[2021-12-18] MEDS: MIDAZOLAM 100MG/100ML PREMIX IV PRN ×2 (00:42→17:32)
[2021-12-18] MEDS: IPRATROPIUM/ALBUTEROL 0.5-3(2.5)MG/3ML NEB HHN SCH ×6 (00:43→21:00)
[2021-12-18] MEDS: VASOPRESSIN 20 UNIT in SODIUM CHLORIDE 0.9% 99 ML IV PRN ×2 (00:46→07:24)
[2021-12-18] MEDS: NOREPINEPHRINE 8 MG in DEXT 5% WATER 250 ML IV PRN (01:20)
[2021-12-18] MEDS: PHENYLEPHRINE 100 MG in DEXT 5% WATER 240 ML IV PRN ×3 (04:43→16:02)
[2021-12-18] MEDS: BUMETANIDE 1MG/4ML VIAL IV SCH (06:03)
[2021-12-18] MEDS: BLOOD SUGAR DIAGNOSTIC STRIP TEST SCH ×4 (07:50→21:00)
[2021-12-18] MEDS: INSULIN LISPRO 100 UNITS/ML SUBCUT SCH ×4 (08:20→21:00)
[2021-12-18] MEDS: CARVEDILOL 3.125 MG TABLET PO SCH ×2 (08:56→17:00)
[2021-12-18] MEDS: BUDESONIDE 0.5MG/2ML NEB HHN SCH ×2 (08:59→16:27)
[2021-12-18] MEDS: FAMOTIDINE 20MG TABLET PO SCH (09:12)
[2021-12-18] MEDS: MIDODRINE HCL 5MG TABLET PO SCH ×3 (09:12→17:56)
[2021-12-18] MEDS ORDERED: DOPAMINE HCL 400 MG in DEXT 5% WATER 250 ML IV SCH (09:30)
[2021-12-18 09:36] LABS: BG BASE EXCESS -11.2 mmol/L (-2.0-2.0); BG CARBOXYHEMOGLOBIN 0.3 % (0.5-1.5); BG DEOXYHEMOGLOBIN 0.8 % (0.0-5.0); BG FRACTION INSPIRED OXYGEN 60; BG HCO3 ACT 13.3 mmol/L (22.0-26.0); BG METHEMOGLOBIN 0.3 % (0.0-1.5); BG OXYGEN SATURATION 99.2 % (92.0-98.5); BG OXYHEMOGLOBIN 98.6 % (94.0-97.0); BG PCO2 26.3 mmHg (35.0-45.0); BG PH 7.323 (7.350-7.450); BG PO2 217.4 mmHg (75.0-100.0); BG SAMPLE SITE RIGHT RADIAL; BG TOTAL HEMOGLOBIN 11.4 g/dL (12.0-18.0); BG VENT MODE VENT - AC
[2021-12-18] MEDS ORDERED: DOPAMINE 800MG PREMIX (DOUBLE) 250 ML IV SCH (10:30)
[2021-12-18] MEDS: INSULIN GLARGINE 100 UNITS/ML SUBCUT SCH (12:48)
[2021-12-18] MEDS ORDERED: ALBUMIN HUMAN 25GM/100ML (25%) IV NR (15:15)
[2021-12-18] MEDS ORDERED: SODIUM BICARBONATE 8.4% 1 MEQ/ML 50ML SYR IV NR (15:15)
[2021-12-18 15:24] LABS: CLARITY URINE CLEAR (CLEAR); COLOR URINE YELLOW (YELLOW); KETONES URINE TRACE (NEGATIVE); LEUKOCYTE ESTERASE URINE NEGATIVE (NEGATIVE); NITRITE URINE NEGATIVE (NEGATIVE); OCCULT BLOOD URINE 1+ (NEGATIVE); PROTEIN URINE 1+ (NEGATIVE); SPECIFIC GRAVITY URINE 1.015 (1.005-1.030); UROBILINOGEN URINE 0.2 E.U./dL (0.2-1.0)
[2021-12-18] MEDS: EPINEPHRINE 5 MG in SODIUM CHLORIDE 0.9% 250 ML IV PRN ×2 (16:15→22:38)
[2021-12-18] MEDS ORDERED: SODIUM CHLORIDE 0.9% 1,000 ML IV SCH (16:45)
[2021-12-18 19:33] LABS: HEMATOCRIT. 30.7 % (36.0-48.0); HEMOGLOBIN. 9.9 g/dL (12.0-16.0); MEAN CORPUSCULAR HEMOGLOBIN 25.2 pg (28.0-32.0); MEAN CORPUSCULAR VOLUME 78.6 fL (81.0-99.0); MEAN PLATELET VOLUME 7.8 fl (7.4-10.4); PLATELET 272 x1000/uL (130-400); RED BLOOD CELL COUNT 3.91 mill/uL (4.2-5.4); RED CELL DISTRIBUTION WIDTH 16.5 % (11.6-14.6)
[2021-12-18 22:09] LABS: PLATELET ESTIMATE NORMAL
[2021-12-18] MEDS: ATORVASTATIN CALCIUM 40MG TABLET PO SCH (22:47)
[2021-12-19] VITALS (96 sets, daily range): BP systolic 90–147; BP diastolic 44–83
[2021-12-19] MEDS: IPRATROPIUM/ALBUTEROL 0.5-3(2.5)MG/3ML NEB HHN SCH ×6 (00:16→20:03)
[2021-12-19] MEDS: INSULIN LISPRO 100 UNITS/ML SUBCUT SCH ×4 (00:52→18:13)
[2021-12-19] MEDS: BLOOD SUGAR DIAGNOSTIC STRIP TEST SCH ×4 (00:52→18:05)
[2021-12-19] MEDS: EPINEPHRINE 5 MG in SODIUM CHLORIDE 0.9% 250 ML IV PRN ×2 (04:34→10:15)
[2021-12-19 06:07] LABS: PHOSPHORUS 3.6 mg/dL (2.5-4.9)
[2021-12-19] MEDS: BUDESONIDE 0.5MG/2ML NEB HHN SCH ×2 (08:19→16:29)
[2021-12-19 08:53] LABS: BG BASE EXCESS -0.7 mmol/L (-2.0-2.0); BG CARBOXYHEMOGLOBIN 0.3 % (0.5-1.5); BG DEOXYHEMOGLOBIN 2.3 % (0.0-5.0); BG FRACTION INSPIRED OXYGEN 30; BG HCO3 ACT 23.5 mmol/L (22.0-26.0); BG METHEMOGLOBIN 0.2 % (0.0-1.5); BG OXYGEN SATURATION 97.7 % (92.0-98.5); BG OXYHEMOGLOBIN 97.2 % (94.0-97.0); BG PCO2 36.6 mmHg (35.0-45.0); BG PH 7.425 (7.350-7.450); BG PO2 106.9 mmHg (75.0-100.0); BG SAMPLE SITE ALINE; BG TOTAL HEMOGLOBIN 10.3 g/dL (12.0-18.0); BG VENT MODE VENT - AC
[2021-12-19] MEDS: MIDODRINE HCL 5MG TABLET PO SCH ×3 (09:00→17:48)
[2021-12-19] MEDS: FAMOTIDINE 20MG TABLET PO SCH (09:00)
[2021-12-19] MEDS: CARVEDILOL 3.125 MG TABLET PO SCH ×2 (09:00→17:00)
[2021-12-19] MEDS: FOLIC ACID/VITAMIN B COMP W-C TABLET PO SCH (09:00)
[2021-12-19] MEDS: INSULIN GLARGINE 100 UNITS/ML SUBCUT SCH (10:16)
[2021-12-19] MEDS ORDERED: DOPAMINE 400MG/250ML PREMIX 250 ML IV PRN (11:15)
[2021-12-19] MEDS ORDERED: AMIODARONE HCL 150 MG in DEXT 5% WATER 100 ML IV NR (11:30)
[2021-12-19] MEDS ORDERED: AMIODARONE HCL 900 MG in DEXT 5% WATER 482 ML IV PRN (11:30)
[2021-12-19] MEDS: VASOPRESSIN 20 UNIT in SODIUM CHLORIDE 0.9% 99 ML IV PRN (13:32)
[2021-12-19] MEDS: METOCLOPRAMIDE HCL 10MG/2ML VIAL IV SCH ×2 (13:38→17:48)
[2021-12-19] MEDS ORDERED: FENTANYL 2500MCG/250ML PMX 250 ML IV PRN (20:30)
[2021-12-19] MEDS: ATORVASTATIN CALCIUM 40MG TABLET PO SCH (21:29)
[2021-12-19] MEDS: MIDAZOLAM 100MG/100ML PREMIX IV PRN ×2 (21:44→21:56)
[2021-12-20] VITALS (97 sets, daily range): BP systolic 83–127; BP diastolic 41–90
[2021-12-20] MEDS: IPRATROPIUM/ALBUTEROL 0.5-3(2.5)MG/3ML NEB HHN SCH ×6 (00:08→20:44)
[2021-12-20] MEDS: METOCLOPRAMIDE HCL 10MG/2ML VIAL IV SCH ×4 (02:01→17:14)
[2021-12-20] MEDS: INSULIN LISPRO 100 UNITS/ML SUBCUT SCH ×4 (02:12→17:16)
[2021-12-20 05:46] LABS: BASOPHILS % 0.1 % (0.0-2.0); HEMOGLOBIN. 9.7 g/dL (12.0-16.0); LYMPHOCYTES % 7.2 % (20.0-50.0); MEAN CORPUSCULAR HEMOGLOBIN 24.8 pg (28.0-32.0); MEAN CORPUSCULAR VOLUME 76.8 fL (81.0-99.0); MEAN PLATELET VOLUME 7.9 fl (7.4-10.4); MONOCYTES % 9.5 % (2.0-8.0); NEUTROPHILS % 83.2 % (40.0-76.0); PLATELET 208 x1000/uL (130-400); RED BLOOD CELL COUNT 3.91 mill/uL (4.2-5.4); RED CELL DISTRIBUTION WIDTH 16.5 % (11.6-14.6)
[2021-12-20 06:06] LABS: PHOSPHORUS 3.4 mg/dL (2.5-4.9)
[2021-12-20] MEDS: BLOOD SUGAR DIAGNOSTIC STRIP TEST SCH ×4 (06:38→17:16)
[2021-12-20] MEDS: DOPAMINE HCL 400 MG in SODIUM CHLORIDE 0.9% 240 ML IV PRN ×2 (06:40→20:59)
[2021-12-20] MEDS: VASOPRESSIN 20 UNIT in SODIUM CHLORIDE 0.9% 99 ML IV PRN ×2 (06:41→16:02)
[2021-12-20] MEDS: BUDESONIDE 0.5MG/2ML NEB HHN SCH (08:53)
[2021-12-20] MEDS: CARVEDILOL 3.125 MG TABLET PO SCH ×2 (09:00→16:32)
[2021-12-20] MEDS: MIDODRINE HCL 5MG TABLET PO SCH ×3 (09:02→17:14)
[2021-12-20] MEDS: FAMOTIDINE 20MG TABLET PO SCH (09:02)
[2021-12-20] MEDS: FOLIC ACID/VITAMIN B COMP W-C TABLET PO SCH (09:04)
[2021-12-20 09:43] LABS: BG BASE EXCESS 1.1 mmol/L (-2.0-2.0); BG CARBOXYHEMOGLOBIN 0.3 % (0.5-1.5); BG DEOXYHEMOGLOBIN 3.5 % (0.0-5.0); BG FRACTION INSPIRED OXYGEN 30; BG HCO3 ACT 25.1 mmol/L (22.0-26.0); BG METHEMOGLOBIN 0.3 % (0.0-1.5); BG OXYGEN SATURATION 96.5 % (92.0-98.5); BG OXYHEMOGLOBIN 95.9 % (94.0-97.0); BG PCO2 37.7 mmHg (35.0-45.0); BG PH 7.442 (7.350-7.450); BG PO2 86.9 mmHg (75.0-100.0); BG SAMPLE SITE ALINE; BG TOTAL HEMOGLOBIN 10.6 g/dL (12.0-18.0); BG VENT MODE VENT - AC
[2021-12-20] MEDS: INSULIN GLARGINE 100 UNITS/ML SUBCUT SCH (11:30)
[2021-12-20] MEDS: ACETAMINOPHEN 325MG TABLET PO PRN (13:56)
[2021-12-20] MEDS: AMIODARONE HCL 200 MG TABLET PO SCH (17:14)
[2021-12-20] MEDS: ATORVASTATIN CALCIUM 40MG TABLET PO SCH (21:00)
[2021-12-21] VITALS (102 sets, daily range): BP systolic 59–135; BP diastolic 32–86
[2021-12-21] MEDS: METOCLOPRAMIDE HCL 10MG/2ML VIAL IV SCH ×4 (00:23→17:35)
[2021-12-21] MEDS: BLOOD SUGAR DIAGNOSTIC STRIP TEST SCH ×4 (00:23→17:52)
[2021-12-21] MEDS: INSULIN LISPRO 100 UNITS/ML SUBCUT SCH ×4 (00:31→18:03)
[2021-12-21] MEDS: IPRATROPIUM/ALBUTEROL 0.5-3(2.5)MG/3ML NEB HHN SCH ×7 (00:44→23:38)
[2021-12-21 04:40] LABS: HEMATOCRIT. 30.6 % (36.0-48.0); HEMOGLOBIN. 9.8 g/dL (12.0-16.0); MEAN CORPUSCULAR HEMOGLOBIN 24.9 pg (28.0-32.0); MEAN CORPUSCULAR VOLUME 78.2 fL (81.0-99.0); MEAN PLATELET VOLUME 8.6 fl (7.4-10.4); PLATELET 265 x1000/uL (130-400); RED BLOOD CELL COUNT 3.92 mill/uL (4.2-5.4); RED CELL DISTRIBUTION WIDTH 17.2 % (11.6-14.6)
[2021-12-21] MEDS: VASOPRESSIN 20 UNIT in SODIUM CHLORIDE 0.9% 99 ML IV PRN ×3 (06:45→18:29)
[2021-12-21] MEDS: PHENYLEPHRINE 100 MG in DEXT 5% WATER 240 ML IV PRN (06:48)
[2021-12-21 08:11] LABS: BG BASE EXCESS -2.3 mmol/L (-2.0-2.0); BG CARBOXYHEMOGLOBIN 0.3 % (0.5-1.5); BG DEOXYHEMOGLOBIN 4.4 % (0.0-5.0); BG FRACTION INSPIRED OXYGEN 30; BG HCO3 ACT 21.3 mmol/L (22.0-26.0); BG METHEMOGLOBIN 0.3 % (0.0-1.5); BG OXYGEN SATURATION 95.6 % (92.0-98.5); BG PCO2 32.5 mmHg (35.0-45.0); BG PH 7.434 (7.350-7.450); BG PO2 82.6 mmHg (75.0-100.0); BG SAMPLE SITE ALINE; BG TOTAL HEMOGLOBIN 10.4 g/dL (12.0-18.0); BG VENT MODE VENT - AC
[2021-12-21] MEDS: FOLIC ACID/VITAMIN B COMP W-C TABLET PO SCH (08:44)
[2021-12-21] MEDS: CARVEDILOL 3.125 MG TABLET PO SCH ×2 (08:44→16:36)
[2021-12-21] MEDS: FAMOTIDINE 20MG TABLET PO SCH (08:44)
[2021-12-21] MEDS: MIDODRINE HCL 5MG TABLET PO SCH ×3 (08:44→16:39)
[2021-12-21] MEDS: AMIODARONE HCL 200 MG TABLET PO SCH ×2 (08:44→16:39)
[2021-12-21] MEDS: ACETAMINOPHEN 325MG TABLET PO PRN ×3 (08:55→17:33)
[2021-12-21 09:18] LABS: NUCLEATED RED BLOOD CELLS 2 /100 WBC; PLATELET ESTIMATE NORMAL
[2021-12-21] MEDS: DOPAMINE HCL 400 MG in SODIUM CHLORIDE 0.9% 240 ML IV PRN (10:53)
[2021-12-21] MEDS: INSULIN GLARGINE 100 UNITS/ML SUBCUT SCH (11:00)
[2021-12-21] MEDS: ATORVASTATIN CALCIUM 40MG TABLET PO SCH (21:35)
[2021-12-22] VITALS (32 sets, daily range): BP systolic -3–119; BP diastolic -4–88
[2021-12-22] MEDS ORDERED: DOPAMINE 400MG/250ML PREMIX 250 ML IV ONE (00:19)
[2021-12-22] MEDS: METOCLOPRAMIDE HCL 10MG/2ML VIAL IV SCH ×2 (00:29→06:00)
[2021-12-22] MEDS: BLOOD SUGAR DIAGNOSTIC STRIP TEST SCH ×2 (00:29→06:00)
[2021-12-22] MEDS: DOPAMINE HCL 400 MG in SODIUM CHLORIDE 0.9% 240 ML IV PRN (00:41)
[2021-12-22] MEDS: INSULIN LISPRO 100 UNITS/ML SUBCUT SCH ×2 (01:06→06:00)
[2021-12-22] MEDS: IPRATROPIUM/ALBUTEROL 0.5-3(2.5)MG/3ML NEB HHN SCH (03:36)
[2021-12-22] MEDS ORDERED: EPINEPHRINE 10 MG in SODIUM CHLORIDE 0.9% 240 ML IV PRN (06:00)
[2021-12-22] MEDS ORDERED: NOREPINEPHRINE 32 MG in DEXT 5% WATER 250 ML IV PRN (06:00)
[2021-12-22] MEDS ORDERED: DEXTROSE 50% WATER 50ML SYRINGE IV ONE (10:51)
[2021-12-22] MEDS ORDERED: ADENOSINE 3 MG/ML 2ML VIAL IV ONE (10:51)
[2021-12-22] MEDS ORDERED: CALCIUM CHLORIDE 1GM/10ML SYR IV ONE (10:51)
[2021-12-22] MEDS ORDERED: SODIUM BICARBONATE 8.4% 1 MEQ/ML 50ML SYR IV ONE (10:51)
[2021-12-22] MEDS ORDERED: AMIODARONE HCL 50MG/ML 3ML VIAL IV ONE (10:51)
[2021-12-22] MEDS ORDERED: EPINEPHRINE 0.1MG/ML (1:10,000) 10ML SYR ONE (10:51)
== END 2021-12-22 05:32 | DRG 166 ==
LOC: ER 05:49 → EDBEDREQSVC 07:27 → EDBEDREQTM 07:27 → EDBEDREQ 07:27 → EDBD 08:56 → 5EST 08:56 → EDBEDREQTM 09:08 → EDBEDREQ 09:08 → ENRESERV 11:49 → CVICU 12-17 18:22
PROVIDERS: ADMIT Hospitalist; ATTEND Hospitalist
PROC: 3E0L4GC Introduction of Other Therapeutic Substance into Pleural Cavity, Percutaneous Endoscopic Approach (ICD-10-PCS; principal; 2021-12-17)
PROC: 0W9940Z Drainage of Right Pleural Cavity with Drainage Device, Percutaneous Endoscopic Approach (ICD-10-PCS; 2021-12-17)
PROC: 5A1955Z Respiratory Ventilation, Greater than 96 Consecutive Hours (ICD-10-PCS; 2021-12-17)
PROC: 0W993ZZ Drainage of Right Pleural Cavity, Percutaneous Approach (ICD-10-PCS; 2021-12-17)
PROC: 5A09357 Assistance with Respiratory Ventilation, Less than 24 Consecutive Hours, Continuous Positive Airway Pressure (ICD-10-PCS; 2021-12-17)
PROC: 0BH17EZ Insertion of Endotracheal Airway into Trachea, Via Natural or Artificial Opening (ICD-10-PCS; 2021-12-17)
DX: C34.91 Malignant neoplasm of unspecified part of right bronchus or lung (principal); J96.22 Acute and chronic respiratory failure with hypercapnia; A41.9 Sepsis, unspecified organism; I50.43 Acute on chronic combined systolic (congestive) and diastolic (congestive) heart failure; J18.9 Pneumonia, unspecified organism; N17.0 Acute kidney failure with tubular necrosis; E43 Unspecified severe protein-calorie malnutrition; R65.21 Severe sepsis with septic shock; J96.21 Acute and chronic respiratory failure with hypoxia; J91.0 Malignant pleural effusion; J98.11 Atelectasis; I13.0 Hypertensive heart and chronic kidney disease with heart failure and stage 1 through stage 4 chronic kidney disease, or unspecified chronic kidney disease; I42.9 Cardiomyopathy, unspecified; J44.9 Chronic obstructive pulmonary disease, unspecified; D64.9 Anemia, unspecified; E11.22 Type 2 diabetes mellitus with diabetic chronic kidney disease; E78.5 Hyperlipidemia, unspecified; I27.20 Pulmonary hypertension, unspecified; I46.9 Cardiac arrest, cause unspecified; N18.30 Chronic kidney disease, stage 3 unspecified; E66.01 Morbid (severe) obesity due to excess calories; Z20.822 Contact with and (suspected) exposure to COVID-19; Z85.3 Personal history of malignant neoplasm of breast; Z85.42 Personal history of malignant neoplasm of other parts of uterus; Z86.16 Personal history of COVID-19; Z92.21 Personal history of antineoplastic chemotherapy; Z92.3 Personal history of irradiation; Z95.810 Presence of automatic (implantable) cardiac defibrillator; Z85.118 Personal history of other malignant neoplasm of bronchus and lung; Z99.81 Dependence on supplemental oxygen; Z68.34 Body mass index [BMI] 34.0-34.9, adult
CPT/HCPCS: 32555; 36415; 36600; 71045; 80048; 80053; 81003; 82375; 82550; 82805; 82962; 83735; 83880; 84100; 84484; 85025; 85027; 86850; 86900; 87070; 87426; 88305; 93005; 94003; 94640; 94660; 94664; 99291; C9803; J0153; J0282; J0690; J1100; J1265; J1650; J1815; J1940; J2250; J2370; J2543; J2710; J2765; J3010; J3490; J7050; J7060; J7626; P9047